=== PATIENT | female | born 1990 | race Caucasian/White ===

== ENCOUNTER 2016-08-28 18:23 | Emergency (ER) | payer OTHER ==
--- NOTE | 2016-08-28 20:06 | ER Document Report ---
ED Medical Screen (RME) - General Chief Complaint: Abdominal Pain Stated Complaint: LEFT SIDE ABDOMINAL PAIN Notes: This 26-year-old female patient comes emergency room complaining of nausea vomiting diarrhea. She has chronic abdominal pain since she was in high school. It has become constant pain in the last month. She is being worked up at [facility], has had sensitive lab work to look at her gallbladder and pancreas, but has not had a gallbladder ultrasound yet. She reports a history of lupus and is on Plaquenil. She thinks she may be having a reaction to Plaquenil. I have greeted and performed a rapid initial assessment of this patient. A comprehensive ED assessment and evaluation of the patient, analysis of test results and completion of the medical decision making process will be conducted by additional ED providers. TRAVEL OUTSIDE OF THE [place] IN LAST 30 DAYS: No - Related Data Allergies/Adverse Reactions: ceftriaxone [From Rocephin] Allergy (Verified 08/28/16 19:54) metronidazole [From Flagyl] Allergy (Verified 08/28/16 19:54) Metronidazole HCl [From Flagyl] Allergy (Verified 08/28/16 19:54) tioconazole [From Monistat 1 (tioconazole)] Allergy (Verified 08/28/16 19:54) Amphetamine Aspartate * [From Adderall] Adverse Reaction (Verified 08/28/16 19: 54) amphetamine sulfate [From Adderall] Adverse Reaction (Verified 08/28/16 19:54) dextroamphetamine [From Adderall] Adverse Reaction (Verified 08/28/16 19:54) methylphenidate HCl [From Ritalin] Adverse Reaction (Verified 08/28/16 19:54) Past Medical History Pulmonary Medical History: Reports: Hx Asthma Renal/ Medical History: Denies: Hx Peritoneal Dialysis Psychiatric Medical History: Reports: Hx Attention Deficit Hyperactivity Disorder, Hx Bipolar Disorder, Hx Depression - Major Past Surgical History: Reports: Hx Gynecologic Surgery - - Immunizations Hx Diphtheria, Pertussis, Tetanus Vaccination: Yes Physical Exam - Vital signs Vitals: Temp Pulse Resp BP Pulse Ox 98.6 F 100 20 120/75 98 08/28/16 18:39 08/28/16 18:39 08/28/16 18:39 08/28/16 18:39 08/28/16 18:39 Course - Vital Signs Vital signs: Temp Pulse Resp BP Pulse Ox 98.6 F 100 20 120/75 98 08/28/16 18:39 08/28/16 18:39 08/28/16 18:39 08/28/16 18:39 08/28/16 18:39
[2016-08-28 20:33] LABS: ABSOLUTE LYMPHOCYTES (AUTO) 1.6 10^3/uL (0.5-4.7); ABSOLUTE MONOCYTES (AUTO) 0.3 10^3/uL (0.1-1.4); ABSOLUTE NEUT (AUTO) 2.6 10^3/uL (1.7-8.2); BASOPHILS % (AUTO) 0.2 % (0-2); EOSINOPHILS % (AUTO) 0.4 % (0-6); HEMATOCRIT 38.9 % (36.0-47.0); HEMOGLOBIN 13.5 g/dL (12.0-15.5); HGB HCT DIFFERENCE 1.6; MEAN CORPUSCULAR HEMOGLOBIN 31.5 pg (27.0-33.4); MEAN CORPUSCULAR HGB CONC 34.6 g/dL (32.0-36.0); MEAN CORPUSCULAR VOLUME 91 fl (80-97); MONOCYTES % (AUTO) 7.4 % (3-13); RED BLOOD COUNT 4.27 10^6/uL (3.72-5.28); RED CELL DISTRIBUTION WIDTH 12.5 % (11.5-14.0); WHITE BLOOD COUNT 4.6 10^3/uL (4.0-10.5)
[2016-08-28 20:49] LABS: ALANINE AMINOTRANSFERASE 22 U/L (9-52); ALBUMIN 5.2 g/dL (3.5-5.0); ALKALINE PHOSPHATASE 51 U/L (38-126); ANION GAP 15 (5-19); ASPARTATE AMINO TRANSFERASE 19 U/L (14-36); BILIRUBIN,DIRECT 0.3 mg/dL (0.0-0.4); BILIRUBIN,TOTAL 0.6 mg/dL (0.2-1.3); BLOOD UREA NITROGEN 8 mg/dL (7-20); CALCIUM 10.3 mg/dL (8.4-10.2); CARBON DIOXIDE 28 mmol/L (22-30); CHLORIDE 100 mmol/L (98-107); CREATININE RESULT 0.69 mg/dL (0.52-1.25); GLUCOSE 98 mg/dL (75-110); LIPASE 46.9 U/L (23-300); POTASSIUM 4.2 mmol/L (3.6-5.0); SODIUM 143.4 mmol/L (137-145); TOTAL PROTEIN 8.4 g/dL (6.3-8.2)
[2016-08-28 21:15] LABS: ERYTHROCYTE SEDIMENTATION RATE 18 mm/hr (0-20)
[2016-08-28] MEDS ORDERED: FAMOTIDINE 20 MG TABLET PO ONE (21:56)
[2016-08-28] MEDS ORDERED: SUCRALFATE 1 GM TABLET PO ONE (21:56)
--- NOTE | 2016-08-28 22:00 | ER Document Report ---
ED GI/ - General Chief Complaint: Abdominal Pain Stated Complaint: LEFT SIDE ABDOMINAL PAIN Time seen by provider: 21:50 Notes: Patient is a 26-year-old female that comes emergency department for chief complaint of pain in her abdomen, she states the pain is worse in the left upper abdomen (she points to the left upper quadrant), she states she has had pains for years but over the past couple of weeks it has bothered her more with more frequent episodes of pain and vomiting. She is on Zofran and Phenergan for nausea, she has been on Plaquenil since May for lupus, she denies any other medical history. She denies fever. She denies flank pain. She denies blood in vomit, black or bloody stools, alcohol use. Patient states that up until May she was on constant prednisone. TRAVEL OUTSIDE OF THE [place] IN LAST 30 DAYS: No - Related Data Allergies/Adverse Reactions: ceftriaxone [From Rocephin] Allergy (Verified 08/28/16 19:54) metronidazole [From Flagyl] Allergy (Verified 08/28/16 19:54) Metronidazole HCl [From Flagyl] Allergy (Verified 08/28/16 19:54) tioconazole [From Monistat 1 (tioconazole)] Allergy (Verified 08/28/16 19:54) Amphetamine Aspartate * [From Adderall] Adverse Reaction (Verified 08/28/16 19: 54) amphetamine sulfate [From Adderall] Adverse Reaction (Verified 08/28/16 19:54) dextroamphetamine [From Adderall] Adverse Reaction (Verified 08/28/16 19:54) methylphenidate HCl [From Ritalin] Adverse Reaction (Verified 08/28/16 19:54) Past Medical History - General Information source: Patient - Social History Smoking Status: Never Smoker Frequency of alcohol use: None Drug Abuse: None Lives with: Spouse/Significant other Family History: Reviewed & Not Pertinent Patient has suicidal ideation: No Patient has homicidal ideation: No Pulmonary Medical History: Reports: Hx Asthma Renal/ Medical History: Denies: Hx Peritoneal Dialysis Psychiatric Medical History: Reports: Hx Attention Deficit Hyperactivity Disorder, Hx Bipolar Disorder, Hx Depression - Major Past Surgical History: Reports: Hx Gynecologic Surgery - - Immunizations Hx Diphtheria, Pertussis, Tetanus Vaccination: Yes Review of Systems - Review of Systems Constitutional: No symptoms reported EENT: No symptoms reported Cardiovascular: No symptoms reported Respiratory: No symptoms reported Gastrointestinal: See HPI Genitourinary: No symptoms reported Female Genitourinary: No symptoms reported Musculoskeletal: No symptoms reported Skin: No symptoms reported Hematologic/Lymphatic: No symptoms reported Neurological/Psychological: No symptoms reported Physical Exam - Vital signs Vitals: Temp Pulse Resp BP Pulse Ox 98.6 F 100 20 120/75 98 08/28/16 18:39 08/28/16 18:39 08/28/16 18:39 08/28/16 18:39 08/28/16 18:39 Interpretation: Normal - General General appearance: Appears well, Alert In distress: None - HEENT Head: Normocephalic, Atraumatic Eyes: Normal Conjunctiva: Normal Extraocular movements intact: Yes Eyelashes: Normal Pupils: PERRL Nasal: Normal Mouth/Lips: Normal Mucous membranes: Normal Pharynx: Normal Neck: Normal - Respiratory Respiratory status: No respiratory distress Chest status: Nontender Breath sounds: Normal. No: Decreased air movement, Wheezing Chest palpation: Normal - Cardiovascular Rhythm: Regular. No: Tachycardia Heart sounds: Normal auscultation, S1 appreciated, S2 appreciated Murmur: No - Abdominal Inspection: Normal Distension: No distension Bowel sounds: Normal Tenderness: Tender - Tenderness in the left upper quadrant and epigastric area, this is mild, no guarding, otherwise very benign abdomen. No: Guarding Organomegaly: No organomegaly - Back Back: Normal, Nontender. No: Tender, CVA tenderness - Extremities General upper extremity: Normal inspection, Nontender, Normal color, Normal ROM , Normal temperature General lower extremity: Normal inspection, Nontender, Normal color, Normal ROM , Normal temperature, Normal weight bearing. No: Lauren's sign - Neurological Neuro grossly intact: Yes Cognition: Normal Orientation: AAOx4 Carmen Coma Scale Eye Opening: Spontaneous Carmen Coma Scale Verbal: Oriented Carmen Coma Scale Motor: Obeys Commands Carmen Coma Scale Total: 15 Speech: Normal Motor strength normal: LUE, RUE, LLE, RLE Sensory: Normal - Psychological Associated symptoms: Normal affect, Normal mood - Skin Skin Temperature: Warm Skin Moisture: Dry Skin Color: Normal Course - Re-evaluation Re-evalutation: Patient is smiling, talkative, well-appearing. Patient does have left upper quadrant tenderness which is mild on exam, otherwise abdomen is completely benign. Will signs unremarkable. CBC, ESR, CMP, lipase, hCG are all negative or unremarkable. Ultrasound shows no acute abnormalities. Placing patient on Carafate, omeprazole, we discussed follow-up in detail, we discussed potentially worsening symptoms in detail, patient states understanding and that she will return for any concerning symptoms. - Vital Signs Vital signs: Temp Pulse Resp BP Pulse Ox 98.6 F 100 20 120/75 98 08/28/16 18:39 08/28/16 18:39 08/28/16 18:39 08/28/16 18:39 08/28/16 18:39 - Laboratory Result Diagrams: 08/28/16 20:10 08/28/16 20:10 Laboratory results interpreted by me: 08/28/16 20:10 Calcium 10.3 H Total Protein 8.4 H Albumin 5.2 H Discharge - Discharge Clinical Impression: Upper abdominal pain Vomiting Qualifiers: Vomiting type: unspecified Vomiting Intractability: non-intractable Nausea presence: unspecified Qualified Code(s): R11.10 - Vomiting, unspecified Condition: Stable Disposition: HOME, SELF-CARE Additional Instructions: Ultrasound shows no abnormalities, lab work is normal including evaluation of your pancreas. Based on your symptoms, workup, and examination I suspect this is gastrointestinal inflammation, most likely of your stomach and small intestine ( I suspect you have gastritis). Take the Carafate and omeprazole as prescribed, avoid spicy foods, smoking, alcohol, qrhs-noy-arnuamp anti-inflammatories. Recommend close follow-up with her primary care, you may need H. pylori testing , you may also need a HIDA scan. Return immediately if you develop worsening symptoms including vomiting blood, black stools, severe pain, etc. Prescriptions: Omeprazole 40 mg PO DAILY #30 capsule.dr Melendezralfate [Carafate 1 gm Tablet] 1 gm PO QID #20 tablet
[2016-08-29 00:12] VITALS: BP 110/72
== END 2016-08-28 22:45 | disposition home or self-care (01) ==
LOC: ER 18:23
DX: R10.12 Left upper quadrant pain (principal); R10.812 Left upper quadrant abdominal tenderness; R10.816 Epigastric abdominal tenderness; R11.2 Nausea with vomiting, unspecified; J45.909 Unspecified asthma, uncomplicated; Z79.899 Other long term (current) drug therapy; Z88.1 Allergy status to other antibiotic agents; Z88.3 Allergy status to other anti-infective agents
CPT/HCPCS: 36415; 76705; 80053; 83690; 84703; 85025; 85652; 99284

== ENCOUNTER 2017-04-18 22:56 | Emergency (ER) | payer OTHER ==
[2017-04-19 00:07] LABS: ALANINE AMINOTRANSFERASE 34 U/L (9-52); ALBUMIN 4.7 g/dL (3.5-5.0); ALKALINE PHOSPHATASE 40 U/L (38-126); ANION GAP 16 (5-19); ASPARTATE AMINO TRANSFERASE 21 U/L (14-36); BILIRUBIN,DIRECT 0.3 mg/dL (0.0-0.4); BILIRUBIN,TOTAL 0.3 mg/dL (0.2-1.3); BLOOD UREA NITROGEN 9 mg/dL (7-20); CALCIUM 9.9 mg/dL (8.4-10.2); CARBON DIOXIDE 22 mmol/L (22-30); CHLORIDE 99 mmol/L (98-107); CREATININE RESULT 0.63 mg/dL (0.52-1.25); GLUCOSE 91 mg/dL (75-110); LIPASE 55.7 U/L (23-300); POTASSIUM 3.7 mmol/L (3.6-5.0); SODIUM 136.7 mmol/L (137-145); TOTAL PROTEIN 7.3 g/dL (6.3-8.2)
--- NOTE | 2017-04-19 00:11 | ER Document Report ---
ED GI/ - General Chief Complaint: Abdominal Pain Stated Complaint: ABDOMINAL PAIN Time Seen by Provider: 04/18/17 23:43 Notes: Patient is a , 7 week 27-year-old female presents emergency department complaining of pelvic cramping. Past medical history significant for lupus and hypertension. Patient states that this started today. Describes the pain as a suprapubic cramping with tingling sensation occasionally. She denies any vaginal bleeding, lightheadedness, nausea, vomiting, diarrhea, constipation, pyuria, hematuria. States that she had seen her PIGS FEET FINISHER at [facility] on where she had an ultrasound showing a 7 week old, living IUP with evidence of a subchorionic hemorrhage. She states after that visit given her previous miscarriage history and past medical history, she was told to encourage bedrest in for follow-up visits with her OB every 2 weeks. She states that she did not take anything for pain prior to arrival. TRAVEL OUTSIDE OF THE [place] IN LAST 30 DAYS: No - Related Data Allergies/Adverse Reactions: ceftriaxone [From Rocephin] Allergy (Verified 04/18/17 22:57) metronidazole [From Flagyl] Allergy (Verified 04/18/17 22:57) Metronidazole HCl [From Flagyl] Allergy (Verified 04/18/17 22:57) tioconazole [From Monistat 1 (tioconazole)] Allergy (Verified 04/18/17 22:57) Amphetamine Aspartate * [From Adderall] Adverse Reaction (Verified 04/18/17 22: 57) amphetamine sulfate [From Adderall] Adverse Reaction (Verified 04/18/17 22:57) dextroamphetamine [From Adderall] Adverse Reaction (Verified 04/18/17 22:57) methylphenidate HCl [From Ritalin] Adverse Reaction (Verified 04/18/17 22:57) Home Medications: Current Home Medications Aspirin [Aspirin 81 mg Chewable Tablet] 1 tab PO DAILY 04/18/17 [History] Ondansetron [Zofran Odt 4 mg Tablet] 1 tab PO PRN PRN 04/18/17 [History] No122/Iron/Folic Acid [ Multi Tablet] 1 tab PO DAILY 04/18/17 [ History] Promethazine HCl 1 tab PO PRN PRN 04/18/17 [History] Past Medical History - Social History Smoking Status: Never Smoker Frequency of alcohol use: None Family History: Reviewed & Not Pertinent Patient has suicidal ideation: No Patient has homicidal ideation: No Pulmonary Medical History: Reports: Hx Asthma Renal/ Medical History: Denies: Hx Peritoneal Dialysis Psychiatric Medical History: Reports: Hx Attention Deficit Hyperactivity Disorder, Hx Bipolar Disorder, Hx Depression - Major Past Surgical History: Reports: Hx Gynecologic Surgery - - Immunizations Hx Diphtheria, Pertussis, Tetanus Vaccination: Yes Review of Systems - Review of Systems Constitutional: No symptoms reported Cardiovascular: No symptoms reported Respiratory: No symptoms reported Gastrointestinal: No symptoms reported Genitourinary: See HPI -: Yes All other systems reviewed and negative Physical Exam - Vital signs Vitals: Temp Pulse Resp BP Pulse Ox 98.4 F 91 18 126/71 H 97 04/18/17 23:01 04/18/17 23:01 04/18/17 23:01 04/18/17 23:01 04/18/17 23:01 - Notes Notes: PHYSICAL EXAM GENERAL: Alert, interacts well. LUNGS: Clear to auscultation bilaterally, no wheezes, rales, or rhonchi. No respiratory distress. HEART: Regular rate and rhythm. No murmurs, gallops, or rubs. ABDOMEN: Soft, nondistended, nontender. No guarding, rebound, or rigidity.. Bowel sounds present in all 4 quadrants. EXTREMITIES: Moves all 4 extremities spontaneously. No edema, radial and dorsalis pedis pulses 2/4 bilaterally. No cyanosis. NEUROLOGICAL: Alert and oriented x4. Normal speech. PSYCH: Normal affect, normal mood. SKIN: Warm, dry, normal turgor. No rashes or lesions noted. Course - Re-evaluation Re-evalutation: 04/19/17 02:55 Patient is a 27-year-old female who is hemodynamically stable, no acute distress and afebrile. No evidence of leukocytosis or anemia. No evidence of electrolyte abnormalities, abnormal renal or liver function. No evidence of proteinuria, dehydration or UTI noted on urinalysis. Transvaginal ultrasound shows evidence of a living IUP with a heart rate of 152 and a subacute/chronic subchorionic hemorrhage. At this time, patient is stable for discharge home with instruction to continue following her obese instructions and to follow-up with them on Thursday regarding her complaints this evening. Patient is remained normotensive in the department. - Vital Signs Vital signs: Temp Pulse Resp BP Pulse Ox 98.7 F 76 16 113/68 98 04/19/17 03:07 04/19/17 03:07 04/19/17 03:07 04/19/17 03:07 04/19/17 03:07 - Laboratory Result Diagrams: 04/18/17 23:33 04/18/17 23:33 Laboratory results interpreted by me: 04/18/17 04/18/17 23:33 23:33 Hct 35.7 L RDW 15.2 H Sodium 136.7 L Beta HCG, Quant 037767.00 H - Diagnostic Test Radiology reviewed: Reports reviewed Discharge - Discharge Clinical Impression: Pelvic pain Condition: Good Disposition: HOME, SELF-CARE Additional Instructions: There is evidence on your ultrasound this evening that your is stable at this time with evidence of a stable collection of blood that is not an abnormal finding in early . Please follow your instructions you have received from your OBGYN regarding bed rest and activity. Please follow up with them if your symptoms persist tomorrow. : You are . care is best started as early in as possible. If you're unsure about continuing this , you should discuss this with your physician or with reed or wind instrument repairer at [facility]. You should take only medications approved by your physician. Acetaminophen can safely be taken for minor pains. As a rule, medication for chronic conditions such as asthma or seizures can safely be continued. You should discuss with the physician every medicine you take. Any regular exercise program can be continued. Talk to your physician, however, before engaging in competitive or demanding sports. Alcohol, smoking, and "street drugs" are dangerous to your baby. Cocaine is especially dangerous. Don't use any illicit drugs! FOLLOW-UP CARE: If you have been referred to a physician for follow-up care, call the physician s office for an appointment as you were instructed or within the next two days. If you experience worsening or a significant change in your symptoms (very heavy bleeding with large clots of blood, passage of tissue, more severe abdominal / pelvic pain or cramping, feeling faint or severe weakness, fever, etc.), notify the physician immediately or return to the Emergency Department at any time for re-evaluation. OBSTETRIC-GYNECOLOGIC (OB-TRANSPORTATION PLANNER) PHYSICIANS IN [place]: For active duty and dependents diagnosed with a threatened or miscarriage, you should follow up in the following manner: Standard patients who have a local civilian provider should follow up with that provider. Patients of the Family Practice Clinic should call your Team Nurse at 8: 00 am the following morning for further instructions. If you are neither a Standard patient nor a patient of the Family Practice Clinic, you should follow up at the [facility] ([facility]) . Patients already enrolled in the [facility], Prime patients not assigned to the Family Practice Clinic, and Active Duty patients not assigned to Family Practice Clinic should report to the [facility] at 8:00 am the next morning that the [facility] is open and then you will be seen in the OB Clinic at 11:00 am.
[2017-04-19] MEDS ORDERED: ACETAMINOPHEN 325 MG TABLET PO ONE (00:17)
[2017-04-19 00:35] LABS: APPEARANCE,URINE CLEAR; BILIRUBIN,URINE NEGATIVE (NEGATIVE); GLUCOSE, URINE NEGATIVE (NEGATIVE); KETONES,URINE NEGATIVE (NEGATIVE); LEUKOCYTE ESTERASE,URINE NEGATIVE (NEGATIVE); NITRITE,URINE NEGATIVE (NEGATIVE); PROTEIN,URINE NEGATIVE (NEGATIVE); URINE SPECIFIC GRAVITY 1.008; UROBILINOGEN,URINE NEGATIVE mg/dL (<2.0)
--- NOTE | 2017-04-19 02:12 | RADIOLOGY REPORT (SQ) ---
EXAM DESCRIPTION: U/S OB TRANSVAG W/DOPPLER CLINICAL HISTORY: 27 years, Female, pelvic orourke without bleeding COMPARISON: None. TECHNIQUE: Transvaginal. LIMITATIONS: None. FINDINGS: Intrauterine gestation with living pole, cardiac activity 152 bpm, crown-rump length of 1.1 cm corresponding with a gestational age of seven weeks and two days and AZUL of 12/04/2017. There is a 2.0 x 1.8 x 0.6 cm subacute/chronic perigestational hemorrhage. 10.4 cm uterus, 4.0 cm right ovary, left ovarian fossa, and 3.6 cm cervical length appear otherwise unremarkable. Left ovary is not directly visualized. No significant free fluid. IMPRESSION: Viable intrauterine gestation measures seven weeks and two days; 2.0 cm perigestational hemorrhage. 2011 [employer]- All Rights Reserved
[2017-04-19 02:21] LABS: ABSOLUTE LYMPHOCYTES (AUTO) 1.5 10^3/uL (0.5-4.7); ABSOLUTE MONOCYTES (AUTO) 0.4 10^3/uL (0.1-1.4); ABSOLUTE NEUT (AUTO) 2.8 10^3/uL (1.7-8.2); BASOPHILS % (AUTO) 0.2 % (0-2); EOSINOPHILS % (AUTO) 0.6 % (0-6); HEMATOCRIT 35.7 % (36.0-47.0); HEMOGLOBIN 12.4 g/dL (12.0-15.5); HGB HCT DIFFERENCE 1.5; LYMPHOCYTES % (AUTO) 31.9 % (13-45); MEAN CORPUSCULAR HEMOGLOBIN 30.7 pg (27.0-33.4); MEAN CORPUSCULAR HGB CONC 34.7 g/dL (32.0-36.0); MEAN CORPUSCULAR VOLUME 89 fl (80-97); MONOCYTES % (AUTO) 9.1 % (3-13); RED BLOOD COUNT 4.03 10^6/uL (3.72-5.28); RED CELL DISTRIBUTION WIDTH 15.2 % (11.5-14.0); SEGMENTED NEUTROPHILS % (AUTO) 58.2 % (42-78); WHITE BLOOD COUNT 4.7 10^3/uL (4.0-10.5)
[2017-04-19 02:39] VITALS: BP 113/68
== END 2017-04-19 03:07 | disposition home or self-care (01) ==
LOC: ER 22:56
DX: O26.891 Other specified pregnancy related conditions, first trimester (principal); R10.2 Pelvic and perineal pain; O20.8 Other hemorrhage in early pregnancy; O16.1 Unspecified maternal hypertension, first trimester; O99.511 Diseases of the respiratory system complicating pregnancy, first trimester; J45.909 Unspecified asthma, uncomplicated; Z3A.01 Less than 8 weeks gestation of pregnancy; Z88.1 Allergy status to other antibiotic agents; Z88.3 Allergy status to other anti-infective agents
CPT/HCPCS: 36415; 76817; 80053; 81001; 83690; 84702; 85025; 93976; 99284

== ENCOUNTER 2017-06-20 00:22 | Emergency (ER) | payer OTHER ==
--- NOTE | 2017-06-20 01:59 | ER Document Report ---
ED General - General Chief Complaint: Abdominal Pain Stated Complaint: ABDOMINAL PAIN Time Seen by Provider: 06/20/17 01:46 Notes: Patient is a 27-year-old female presents with complaint of abdominal tightness and pain. Some pain is of her lower abdomen where her uterus is. She denies any abnormal vaginal bleeding or discharge. She is currently being treated for bacterial vaginosis, yeast infection, and group B strep. She is currently on amoxicillin. She has finished her course of clindamycin. She does have history of lupus. Should she does see an OB with [facility] and also sees a [employer] specialist because of her history of lupus. She is on Plaquenil for lupus. Patient says that she is wanting to switch OB doctors. She says he wants to switch both her high risk and her regular OB because she feels "the do not listen to me and do not see me when I am sick". Patient says she has had some vomiting throughout . She said Zofran and Phenergan did not help. She has been taking Reglan which is helped some. She says she has lost some weight during her . She says she does eat but she does not eat as much as she should she does not have an appetite. She denies any fevers. No other complaints at this time. TRAVEL OUTSIDE OF THE [place] IN LAST 30 DAYS: No - Related Data Allergies/Adverse Reactions: ceftriaxone [From Rocephin] Allergy (Verified 04/18/17 22:57) metronidazole [From Flagyl] Allergy (Verified 04/18/17 22:57) Metronidazole HCl [From Flagyl] Allergy (Verified 04/18/17 22:57) tioconazole [From Monistat 1 (tioconazole)] Allergy (Verified 04/18/17 22:57) Amphetamine Aspartate * [From Adderall] Adverse Reaction (Verified 04/18/17 22: 57) amphetamine sulfate [From Adderall] Adverse Reaction (Verified 04/18/17 22:57) dextroamphetamine [From Adderall] Adverse Reaction (Verified 04/18/17 22:57) methylphenidate HCl [From Ritalin] Adverse Reaction (Verified 04/18/17 22:57) Past Medical History - Social History Smoking Status: Never Smoker Frequency of alcohol use: None Drug Abuse: None Family History: Reviewed & Not Pertinent Patient has suicidal ideation: No Patient has homicidal ideation: No Pulmonary Medical History: Reports: Hx Asthma Renal/ Medical History: Denies: Hx Peritoneal Dialysis Psychiatric Medical History: Reports: Hx Attention Deficit Hyperactivity Disorder, Hx Bipolar Disorder, Hx Depression - Major Past Surgical History: Reports: Hx Gynecologic Surgery - - Immunizations Hx Diphtheria, Pertussis, Tetanus Vaccination: Yes Review of Systems - Review of Systems Notes: My Normal Review Basic REVIEW OF SYSTEMS: CONSTITUTIONAL : Denies fever, chills, or sweats. Denies recent illness. EENT: Denies eye, ear, throat, or mouth pain or symptoms. Denies nasal or sinus congestion. RESPIRATORY: Denies cough, cold, or chest congestion. Denies shortness of breath, difficulty breathing, or wheezing. GASTROINTESTINAL: lower Abdominal pain. Some nausea. GENITOURINARY: Denies difficulty urinating, painful urination, burning, frequency, or blood in urine. FEMALE GENITOURINARY: Only . MUSCULOSKELETAL: Denies neck or back pain or joint pain or swelling. SKIN: Denies rash or skin lesions. NEUROLOGICAL: Denies altered mental status or loss of consciousness. Denies headache. Denies weakness or paralysis or loss of use of either side. Denies problems with gait or speech. Denies sensory or motor loss. ALL OTHER SYSTEMS REVIEWED AND NEGATIVE. Physical Exam - Vital signs Vitals: Temp Pulse Resp BP Pulse Ox 98.9 F 87 22 H 111/68 100 06/20/17 00:34 06/20/17 00:34 06/20/17 00:34 06/20/17 00:34 06/20/17 00:34 - Notes Notes: General Appearance: Well nourished, alert, cooperative, no acute distress, mild obvious discomfort. Vitals: reviewed, See vital signs table. Head: no swelling or tenderness to the head Eyes: PERRL, EOMI, Conjuctiva clear Mouth: No decreasd moisture Lungs: No wheezing, No rales, No rhonci, No accessory muscle use, good air exchange bilaterally. Heart: Normal rate, Regular rythm, No murmur, no rub Abdomen: Normal BS, soft, No rigidity, pain to palpation of her lower abdomen. This pain is bilateral and in the suprapubic region. No pain to palpation of the upper abdomen., No guarding, no rebound, she has gravid abdomen. Bedside ultrasound shows IUP with good movement with a heart rate of 163. Pelvic exam: Normal external genitalia, no discharge in vaginal vault, no blood. closed os Extremities: strength 5/5 in all extremities, good pulses in all extremities, no swelling or tenderness in the extremities, no edema. Skin: warm, dry, appropriate color, no rash Neuro: speech clear, oriented x 3, normal affect, responds appropriately to questions. Course - Re-evaluation Re-evalutation: 06/20/17 07:01 Patient's pelvic exam was non-concerning. There is no discharge of blood. Patient looks well on exam. She is feeling improved after IV fluids. I did write a prescription for Reglan. Her wet prep did show some bacteria however patient has recent diagnosis of bacterial vaginosis was group B strep. She just finished a course of clindamycin is now take amoxicillin. Will not prescribe any further antibiotics at this time. I informed her that is important she follows up with OB doctor in a couple of days to be reevaluated to see if she needs any further antibiotics after her course is completed. Patient agrees with plan. Patient encouraged to return to ER if she is worsening pain, intractable vomiting, fevers, or abnormal discharge. Patient agrees with plan will be discharged home. Dictation of this chart was performed using voice recognition software; therefore, there may be some unintended grammatical errors. - Vital Signs Vital signs: Temp Pulse Resp BP Pulse Ox 98.6 F 92 18 118/64 100 06/20/17 03:40 06/20/17 03:40 06/20/17 03:40 06/20/17 03:40 06/20/17 03:40 - Laboratory Result Diagrams: 06/20/17 02:20 06/20/17 02:20 Laboratory results interpreted by me: 06/20/17 06/20/17 02:20 02:20 RBC 3.36 L Hgb 10.9 L Hct 31.0 L Carbon Dioxide 21 L Creatinine 0.49 L Discharge - Discharge Clinical Impression: Pelvic pain Qualifiers: Weeks of gestation: 16 weeks Qualified Code(s): Z3A.16 - 16 weeks gestation of Condition: Good Disposition: HOME, SELF-CARE Additional Instructions: Your blood test did not show any concerning findings. Your urinalysis showed no evidence of infection. Your bedside ultrasound showed that the baby had a good heart rate and good movement. The pelvic exam was normal-appearing. Your swab did show some bacteria. We will have you continue your treatment with amoxicillin. It is important that you follow-up with an HELP DESK CONSULTANT in 3-5 days so they can reevaluate you soon and redo the pelvic exam to determine if you need any further antibiotic treatment. I have written a new prescription for Reglan being that you are almost out. Please continue to eat and drink and try to stay well-hydrated. Please return to the ER immediately if you have fevers, worsening abdominal pain, intractable vomiting, or if you feel unwell. Prescriptions: Metoclopramide HCl [Reglan 10 mg Tablet] 1 tab PO ASDIR PRN #25 tablet PRN Reason: Referrals: ABDON TA MD [ACTIVE STAFF] - Follow up in 3-5 days (call the office on Thursday morning to set up a close follow up appointment.)
[2017-06-20 02:35] LABS: ABSOLUTE LYMPHOCYTES (AUTO) 1.7 10^3/uL (0.5-4.7); ABSOLUTE MONOCYTES (AUTO) 0.4 10^3/uL (0.1-1.4); ABSOLUTE NEUT (AUTO) 3.9 10^3/uL (1.7-8.2); BASOPHILS % (AUTO) 0.2 % (0-2); EOSINOPHILS % (AUTO) 0.5 % (0-6); HEMOGLOBIN 10.9 g/dL (12.0-15.5); LYMPHOCYTES % (AUTO) 28.6 % (13-45); MEAN CORPUSCULAR HEMOGLOBIN 32.5 pg (27.0-33.4); MEAN CORPUSCULAR HGB CONC 35.2 g/dL (32.0-36.0); MEAN CORPUSCULAR VOLUME 92 fl (80-97); MONOCYTES % (AUTO) 6.4 % (3-13); PLATELET COUNT 187 10^3/uL (150-450); RED BLOOD COUNT 3.36 10^6/uL (3.72-5.28); RED CELL DISTRIBUTION WIDTH 12.9 % (11.5-14.0); SEGMENTED NEUTROPHILS % (AUTO) 64.3 % (42-78); TOTAL CELLS COUNTED % (AUTO) 100 %; WHITE BLOOD COUNT 6.1 10^3/uL (4.0-10.5)
[2017-06-20 02:46] LABS: APPEARANCE,URINE CLEAR; BILIRUBIN,URINE NEGATIVE (NEGATIVE); COLOR,URINE STRAW; GLUCOSE, URINE NEGATIVE (NEGATIVE); KETONES,URINE NEGATIVE (NEGATIVE); LEUKOCYTE ESTERASE,URINE NEGATIVE (NEGATIVE); NITRITE,URINE NEGATIVE (NEGATIVE); PROTEIN,URINE NEGATIVE (NEGATIVE); URINE SPECIFIC GRAVITY 1.004; UROBILINOGEN,URINE NEGATIVE mg/dL (<2.0)
[2017-06-20 02:49] LABS: ALANINE AMINOTRANSFERASE 23 U/L (9-52); ALBUMIN 4.2 g/dL (3.5-5.0); ALKALINE PHOSPHATASE 40 U/L (38-126); ANION GAP 11 (5-19); ASPARTATE AMINO TRANSFERASE 17 U/L (14-36); BILIRUBIN,DIRECT 0.3 mg/dL (0.0-0.4); BILIRUBIN,TOTAL 0.3 mg/dL (0.2-1.3); BLOOD UREA NITROGEN 9 mg/dL (7-20); CALCIUM 9.8 mg/dL (8.4-10.2); CARBON DIOXIDE 21 mmol/L (22-30); CHLORIDE 105 mmol/L (98-107); GLUCOSE 82 mg/dL (75-110); POTASSIUM 3.8 mmol/L (3.6-5.0); SODIUM 137.2 mmol/L (137-145); TOTAL PROTEIN 6.7 g/dL (6.3-8.2)
[2017-06-20 03:02] LABS: BACTERIA (WET MOUNT) 3+ BACTERIA SEEN; EPITHELIALS (WET MOUNT) 3+ EPITHELIALS SEEN; RBCS (WET MOUNT) RARE RBCS SEEN; T.VAGINALIS (WET MOUNT) NO TRICHOMONAS SEEN; WBCS (WET MOUNT) NO WBCS SEEN; YEAST (WET MOUNT) NO YEAST SEEN
[2017-06-20 03:49] VITALS: BP 118/64
[2017-06-20 04:28] LABS: CHLAM PCR NOT DETECTED (NOT DETECT); GON PCR NOT DETECTED (NOT DETECT)
== END 2017-06-20 03:49 | disposition home or self-care (01) ==
LOC: ER 00:22
DX: O26.892 Other specified pregnancy related conditions, second trimester (principal); R10.2 Pelvic and perineal pain; R10.30 Lower abdominal pain, unspecified; R11.10 Vomiting, unspecified; R63.0 Anorexia; Z3A.16 16 weeks gestation of pregnancy; Z79.899 Other long term (current) drug therapy
CPT/HCPCS: 36415; 80053; 81001; 85025; 87210; 87491; 87591; 99284